=== PATIENT | male | born 1990 | race Two or more races ===

== ENCOUNTER 2023-01-14 15:13 | Emergency (ER) | payer SELFPAY ==
[2023-01-14 15:30] VITALS: RESP 18; BMI 20.7
[2023-01-14] MEDS ORDERED: METOCLOPRAMIDE HCL INJECTION 10 MG/2 ML VIAL IVPUSH ONE (16:44)
[2023-01-14] MEDS ORDERED: SODIUM CHLORIDE 0.9% 1000 ML INFUS.BAG IV ONE ×2 (16:44→18:06)
[2023-01-14] MEDS ORDERED: ACETAMINOPHEN 1000 MG/100 ML BAG IVPB ONE (16:44)
[2023-01-14] MEDS ORDERED: ACETAMINOPHEN INJECTION 100 ML IVPB ONE (16:51)
[2023-01-14] MEDS ORDERED: METOCLOPRAMIDE HCL INJECTION 10 MG/2 ML VIAL ONE (16:51)
[2023-01-14 17:15] LABS: BASO % 0.4 % (0-2.0); HEMATOCRIT 43.9 % (35.4-49); HEMOGLOBIN 14.7 GM/dL (11.7-16.9); LYMPH % 24.7 % (8-40); MCH 26.9 pg (25.7-33.7); MCHC 33.4 g/dl (32.0-35.9); MEAN CELL VOLUME 80.3 fl (80-96); MEAN PLT VOLUME 9.3 fl (7.5-11.1); NEUT % 64.9 % (42.8-82.8); PLATELET COUNT 288 10^3/uL (134-434); RBC 5.47 M/mm3 (4.00-5.60); RDW 13.4 % (11.9-15.9); URINE APPEARANCE CLEAR; URINE BILIRUBIN NEGATIVE (NEGATIVE); URINE COLOR YELLOW; URINE GLUCOSE (UA) NEGATIVE (NEGATIVE); URINE KETONE NEGATIVE (NEGATIVE); URINE LEUK ESTERASE NEGATIVE (NEGATIVE); URINE NITRITE NEGATIVE (NEGATIVE); URINE PROTEIN NEGATIVE (NEGATIVE); URINE UROBILINOGEN 0.2 mg/dL (0.2-1.0); WHITE BLOOD COUNT 5.9 K/mm3 (4.0-10.0)
[2023-01-14 17:31] LABS: POTASSIUM 4.3 mmol/L (3.5-5.1)
[2023-01-14 17:33] LABS: ALBUMIN 4.8 g/dl (3.4-5.0); BLOOD UREA NITROGEN 10.9 mg/dL (7-18); CALCIUM 9.5 mg/dL (8.5-10.1)
[2023-01-14 17:37] LABS: CREATININE 0.8 mg/dL (0.55-1.3)
[2023-01-14 17:38] LABS: BILIRUBIN,TOTAL 0.9 mg/dL (0.2-1)
[2023-01-14] MEDS ORDERED: ONDANSETRON 4 MG/2 ML VIAL ONE (20:11)
[2023-01-14] MEDS ORDERED: KETOROLAC TROMETHAMINE 15 MG/ML VIAL ONE (20:11)
[2023-01-14] MEDS ORDERED: ONDANSETRON 4 MG/2 ML VIAL IVPUSH ONE (20:16)
[2023-01-14 21:01] VITALS: BP 147/103; PULSE 62
[2023-01-14 21:16] VITALS: TEMP 98
== END 2023-01-14 21:17 | disposition home or self-care (01) ==
LOC: JER 15:13
PROC: 3E033NZ Introduction of Analgesics, Hypnotics, Sedatives into Peripheral Vein, Percutaneous Approach (ICD-10-PCS; principal; 2023-01-14)
PROC: 3E033GC Introduction of Other Therapeutic Substance into Peripheral Vein, Percutaneous Approach (ICD-10-PCS; 2023-01-14)
PROC: 3E033GC Introduction of Other Therapeutic Substance into Peripheral Vein, Percutaneous Approach (ICD-10-PCS; 2023-01-14)
DX: R10.84 Generalized abdominal pain (principal); R53.83 Other fatigue; F12.23 Cannabis dependence with withdrawal
CPT/HCPCS: 36415; 74177-TC; 80053; 81003; 82150; 82962; 83605; 83690; 85025; 87077; 87086; 93005; 93010; 99285-25; Q9967